=== PATIENT | female | born 1990 | race Caucasian/White ===

== ENCOUNTER 2017-04-01 20:45 | Emergency (ER) | payer MEDICAID ==
[~2017-04-01 20:45] MED LIST: AMOX500T PO; DICL50 PO
[2017-04-01 20:53] VITALS: BP 150/67; PULSE 117; RESP 20; TEMP 98.7; O2SAT 98
[2017-04-01] MEDS ORDERED: HYDR-3535 PO (21:32)
[2017-04-01] MEDS ORDERED: HYDR50TA94 PO (21:59)
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
[2017-04-01] MEDS ORDERED: hydrOXYzine HCL 50 MG TAB PO ONE (22:00)
== END 2017-04-01 22:15 | disposition home or self-care (01) ==
LOC: PHED 20:45 → PHEFT 22:15
DX: R21 Rash and other nonspecific skin eruption (principal); F17.210 Nicotine dependence, cigarettes, uncomplicated
CPT/HCPCS: 99283

== ENCOUNTER 2018-01-08 01:15 | Emergency (ER) | payer OTHER, MEDICAID ==
[~2018-01-08] VITALS: Ht 154.9 cm; Wt 69.0 kg
[~2018-01-08 01:15] MED LIST changes: -AMOX500T PO; -DICL50 PO; +HYDR-3535 PO; +HYDR50TA94 PO
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
[2018-01-08 01:42] VITALS: BP 133/76; PULSE 108; RESP 18; TEMP 98.6; O2SAT 98
[2018-01-08] MEDS ORDERED: HYDR-3288 PO (01:48)
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
[2018-01-08] MEDS ORDERED: DICL75TA PO (03:00)
[2018-01-08] MEDS ORDERED: BACL10TA PO (03:00)
== END 2018-01-08 03:25 | disposition home or self-care (01) ==
LOC: NEPD 01:15
DX: S09.90XA Unspecified injury of head, initial encounter (principal); S16.1XXA Strain of muscle, fascia and tendon at neck level, initial encounter; R20.0 Anesthesia of skin; G89.29 Other chronic pain; V89.2XXA Person injured in unspecified motor-vehicle accident, traffic, initial encounter
CPT/HCPCS: 70450; 72125; 84703; 99283